=== PATIENT | female | born 1975 | race Caucasian/White ===

== ENCOUNTER → 2021-06-27 13:56 | Outpatient (CLI) | payer OTHER, SELFPAY ==
--- NOTE | ~2021-06-27 | MR_ITS ---
EXAMINATION: MR knee LT wo con DATE: 06/27/2021 14:36 INDICATION: Left knee pain. TECHNIQUE: Magnetic resonance imaging (MRI) of the left knee was performed without intravenous contra st. Sequences included axial PD-weighted FS FSE, coronal PD-weighted FSE and PD-weighted FS FSE, sagi ttal PD-weighted FSE, and sagittal T2-weighted FS FSE. COMPARISON: None. FINDINGS: Medial compartment: There is an undersurface horizontal tear of peripheral medial meniscus at the junction of the body an d posterior horn. Medial compartment cartilage is normal. Lateral compartment: Lateral meniscus is normal. Lateral compartment cartilage is normal. Patellofemoral compartment: There is shallow partial-thickness cartilage loss of patellar medial facet with small subchondral cys ts and mild subchondral edema-like marrow signal intensity. Trochlear cartilage is normal. Ligaments and tendons: The anterior and posterior cruciate ligaments are normal. Medial collateral ligament and lateral sergio ateral ligament complex are normal. Fluid: There is a small knee joint effusion. IMPRESSION: 1. Mild patellar chondrosis. 2. Tear of medial meniscus. 3. Small knee joint effusion. Reviewed, dictated and finalized at location A. 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
== END ==
PROVIDERS: PCP Internal Medicine
DX: M25.562 Pain in left knee (principal); M22.2X2 Patellofemoral disorders, left knee; S83.242A Other tear of medial meniscus, current injury, left knee, initial encounter; M25.462 Effusion, left knee
CPT/HCPCS: 73721

== ENCOUNTER → 2021-08-15 10:28 | Outpatient (CLI) | payer OTHER, SELFPAY ==
--- NOTE | ~2021-08-15 | MM_ITS ---
EXAMINATION: MM screening [facility] BI w juno HISTORY: Screening mammogram TECHNIQUE: Craniocaudal and mediolateral oblique 3-D tomosynthesis images were obtained and synthetic 2-D images were generated. CAD analysis was submitted and interpreted. COMPARISON: 01/30/2018 BREAST PARENCHYMAL COMPOSITION: The breasts are extremely dense, which lowers the sensitivity of mamm ography. FINDINGS: RIGHT BREAST: There is no evidence of suspicious mass, calcification, or architectural distortion to suggest malignancy. There has been no significant interval change. LEFT BREAST: An asymmetry is present in the posterior third of the slightly inner breast 6 cm from th e nipple on the craniocaudal view. IMPRESSION: 1. Left breast asymmetry on the craniocaudal view. 2. Additional mammographic views and possible breast ultrasound are recommended. BI-RADS Category 0: Incomplete: Needs additional imaging evaluation. Reviewed, dictated and finalized at location A. IMPRESSION: 1. Left breast asymmetry on the craniocaudal view. 2. Additional mammographic views and possible breast ultrasound are recommended . BI-RADS Category 0: Incomplete: Needs additional imaging evaluation.
== END ==
DX: Z12.31 Encounter for screening mammogram for malignant neoplasm of breast (principal); R92.8 Other abnormal and inconclusive findings on diagnostic imaging of breast
CPT/HCPCS: 77063; 77067

== ENCOUNTER → 2021-08-30 14:19 | Outpatient (CLI) | payer OTHER, SELFPAY ==
--- NOTE | ~2021-08-30 | MM_ITS ---
EXAMINATION: MM diagnostic [facility] LT w juno HISTORY: Left breast asymmetry on screening mammogram TECHNIQUE: Additional 3-D tomosynthesis images of the left breast were performed and synthetic 2-D im ages were generated. CAD analysis was submitted and interpreted. COMPARISON: 08/15/2021, 01/30/2018 FINDINGS: There is a return to baseline fibroglandular appearance with spot compression of the left b reast in the area questioned on screening mammogram. IMPRESSION: 1. No mammographic evidence of malignancy. 2. Recommend routine screening mammography in one year. BI-RADS Category 1: Negative Reviewed, dictated and finalized at location A.
== END ==
DX: R92.8 Other abnormal and inconclusive findings on diagnostic imaging of breast (principal)
CPT/HCPCS: 77061; 77065; G0279

== ENCOUNTER → 2022-04-03 08:54 | Outpatient (CLI) | payer OTHER, SELFPAY ==
--- NOTE | ~2022-04-03 | MMUS_ITS ---
EXAMINATION: MM diagnostic [facility] BI w juno, US breast BI complete HISTORY: Comparison to multiple prior studies sequentially, with oldest reviewed study dated 01/31/20 18. TECHNIQUE: Additional 3-D tomosynthesis images of the breasts were performed and synthetic 2-D images were generated. CAD analysis was submitted and interpreted. High resolution bilateral complete breas t ultrasound was performed. COMPARISON: Comparison to multiple prior studies sequentially, with oldest reviewed study dated 01/30. BREAST PARENCHYMAL COMPOSITION: The breasts are extremely dense, which lowers the sensitivity of mamm ography FINDINGS: MAMMOGRAPHIC FINDINGS: There are no suspicious masses, calcifications or architectural distortion in either breast to sugges t malignancy. ULTRASOUND: Complete bilateral US of all 4 quadrants of the breasts and retroareolar region was reviewed. In the right breast at 9:00, 2 cm from the nipple there is a 5 mm cyst. No suspicious masses are identified in either breast to suggest malignancy. IMPRESSION: 1. No evidence for malignancy in either breast. 2. Routine yearly screening mammogram and regular clinical breast examination are recommended. BI-RADS Category 2: Benign finding(s). Reviewed, dictated and finalized at location A. IMPRESSION: 1. No evidence for malignancy in either breast. 2. Routine yearly screening mammogram and regular clinical breast examination a re recommended. BI-RADS Category 2: Benign finding(s).
== END ==
PROVIDERS: PCP Nurse Practitioner Obstetrics & Gynecology; Visit Provider Nurse Practitioner Obstetrics & Gynecology
DX: N64.4 Mastodynia (principal)
CPT/HCPCS: 76641; 77062; 77066; G0279

== ENCOUNTER → 2023-01-22 09:17 | Outpatient (CLI) | payer OTHER, SELFPAY ==
--- NOTE | ~2023-01-22 | MMUS_ITS ---
EXAMINATION: MM diagnostic [facility] BI w juno, US breast BI complete HISTORY: Right axillary lump TECHNIQUE: ML, MLO and CC 3-D tomosynthesis images of both breasts were performed and synthetic 2-D i mages were generated. CAD analysis was submitted and interpreted. High resolution complete bilateral breast ultrasound examination including all 4 quadrants and subareolar areas was performed. Ultrasoun d imaging of the right axillary region was also performed. COMPARISON: 04/03/2022 bilateral diagnostic mammogram and complete bilateral breast ultrasound examin ation 08/30/2021 diagnostic left mammogram 08/15/2021 bilateral screening mammogram 01/30/2018 bilateral screening mammogram BREAST PARENCHYMAL COMPOSITION: The breasts are extremely dense, which lowers the sensitivity of mamm ography. FINDINGS: MAMMOGRAPHIC FINDINGS: No suspicious mass or architectural distortion, malignant calcification, skin thickening or retractio n or significant new or developing density is detected. ULTRASOUND: There is a normal appearing approximately 4 x 15 mm lymph node with thin hypoechoic cortex and promin ent fatty hilum. No suspicious right axillary mass lesion or shadowing is noted. No suspicious mass or shadowing, cyst or other significant sonographic finding is noted in either [place] ast. IMPRESSION: 1. Negative; no mammographic evidence of malignancy 2. Routine annual mammographic screening is recommended, with consideration for supplemental ultrasou nd considering the very dense fibroglandular stroma BI-RADS Category 1: Negative Reviewed, dictated and finalized at location A. IMPRESSION: 1. Negative; no mammographic evidence of malignancy 2. Routine annual mammographic screening is recommended, with consideration for supplemental ultrasound considering the very dense fibroglandular stroma BI-RADS Category 1: Negative
== END ==
PROVIDERS: PCP Nurse Practitioner Obstetrics & Gynecology
DX: N64.4 Mastodynia (principal)
CPT/HCPCS: 76641; 77062; 77066; G0279

== ENCOUNTER 2024-02-08 07:17 | Outpatient (CLI) | payer OTHER, SELFPAY ==
--- NOTE | ~2024-02-08 | XR_ITS ---
Lumbosacral Spine: AP, oblique, and lateral views Clinical History: Pain Findings: The normal lordotic curve is maintained. The vertebral bodies and posterior elements are i ntact. The intervertebral disc spaces are preserved. There is moderate facet arthropathy at L5-S1. T he sacroiliac joints are normally outlined. Impression: Moderate facet arthropathy at L5-S1. Reviewed, dictated and finalized at location . Impression: Moderate facet arthropathy at L5-S1.
== END 2024-02-08 07:18 | disposition home or self-care (01) ==
PROVIDERS: PCP Chiropractor; Visit Provider Chiropractor
DX: M47.897 Other spondylosis, lumbosacral region (principal)
CPT/HCPCS: 72110

== ENCOUNTER 2024-05-22 08:37 | Outpatient (CLI) | payer OTHER, SELFPAY ==
--- NOTE | ~2024-05-22 | MR_ITS ---
MRI of the left knee Clinical history: Patellofemoral arthritis Technique: Coronal proton density and proton density-weighted images, sagittal proton-density and T2 fat-sat images, and axial proton-density fat-saturated images were acquired. COMPARISON: 06/27/2021 Findings: Anterior and posterior cruciate ligaments are intact. Medial collateral ligament and the la teral collateral ligament complex are intact. Popliteus tendon is intact. Medial and lateral menisci are intact, without evidence of tear. There is focal moderate to high-grade chondromalacia the patellar apex with focal subchondral cystic change, overall similar to prior exam. Articular cartilage in the medial lateral compartments is well preserved. Extensor mechanism is intact. No joint effusion or Gutierrez's cyst. 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 Reviewed, dictated and finalized at [facility]. 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
== END 2024-05-22 08:38 | disposition home or self-care (01) ==
PROVIDERS: PCP Physician Assistant; Visit Provider Physician Assistant
DX: M22.42 Chondromalacia patellae, left knee (principal)
CPT/HCPCS: 73721

== ENCOUNTER 2024-11-05 10:42 | Outpatient (CLI) | payer OTHER, SELFPAY ==
--- NOTE | ~2024-11-05 | MM_ITS ---
EXAMINATION: MM screening [facility] BI w juno HISTORY: Screening TECHNIQUE: Craniocaudal and mediolateral oblique 3-D tomosynthesis images were obtained and synthetic 2-D images were generated. CAD analysis was submitted and interpreted. COMPARISON: 08/15/2021 and 01/30/2018 BREAST PARENCHYMAL COMPOSITION: The breasts are extremely dense, which lowers the sensitivity of mamm ography. FINDINGS: There is no evidence of suspicious mass, calcification, or architectural distortion to sug gest malignancy in either breast. There has been no suspicious interval change. IMPRESSION: 1. No mammographic evidence of malignancy. 2. Recommend routine screening mammography in one year. BI-RADS Category 1: Negative Reviewed, dictated and finalized at location B.
== END 2024-11-05 10:43 | disposition home or self-care (01) ==
LOC: MICIMG 10:43
PROVIDERS: PCP Nurse Practitioner; Visit Provider Nurse Practitioner
DX: Z12.31 Encounter for screening mammogram for malignant neoplasm of breast (principal)
CPT/HCPCS: 77063; 77067

== ENCOUNTER 2025-01-12 10:41 | Outpatient (CLI) | payer OTHER, SELFPAY ==
--- NOTE | 2025-01-12 | ECG_ITS ---
Test Date: 2025-01-12 11:04:45 Measurements Intervals [place] Rate: 60 P: 65 NM: 143 QRS: 87 QRSD: 94 T: 58 QT: 413 QTc: 413 Interpretive Statements SINUS RHYTHM NORMAL ECG No previous ECG available for comparison Electronically Signed On 01-12-2025 11:12:03 CDT by Mark Johnson D.O.
--- OUTSIDE RECORDS SUMMARY | 2025-01-12 10:49 | XMS_ITS | Clinical Summary ---
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,non-owned Affiliates and Associated Physician Practices is amultiple site organization consisting of ambulatory clinics and hospital sitesin [place], [place], [place] and [place]. This disclosure is being madepursuant to the Care Everywhere program and may not contain all information available regarding this patient. Last updated 18.[facility] Allergies No known active allergies Medications * Be aware that medications may not be up to date on this document. Alwaysverify current medications with the patient. No known medications Active Problems No known active problems Social History Tobacco Use Types Packs/Day Years Used Date Smoking Tobacco: Never Comments Unknown Sex and Gender Information Value Date Recorded Sex Assigned at Not on file Legal Sex Female 10:57 AM CDT Gender Identity Not on file Sexual Orientation Not on file Plan of Treatment Health Maintenance Due Date Last Done Comments COLOGUARD (AGES 45-75) - COL ON CA SCREENING 1977 COLON MONITORING 1977 COLONOSCOPY - COLON CA SCREENING 1977 CT COLONOGRAPHY - COLON CA SCREENING 1977 Colorectal Cancer Screening 1977 FIT - COLON CA SCREENING 1977 FLEX SIG - COLON CA SCREENING 1977 LIPID TESTING 1977 MAMMOGRAM 1977 HIV SCREENING 1992 HEPATITIS C SCREENING 11/20/1995 DTAP/TDAP/TD VACCINES (1 - Tdap) 1996 HEPATITIS B VACCINE (1 of 3 - 19+ 3-dose series) 1996 COVID-19 VACCINE (2023-2 5 season) 2024 09/21/2020, 08/27/2020 DEPRESSION SCREENING 06/04/2024 INFLUENZA VACCINE (#1) 2025 03/08/2023 PAP SMEAR 03/20/2025 03/20/2022, 03/20/2022 ZOSTER VACCINE (1 of 2) 11/25/2027 HIB VACCINE Aged Out No longer eligi ble based on patient's age to complete this topic HPV VACCINE Aged Out No longer eligi ble based on patient's age to complete this topic MENINGOCOCCAL (Group B) VACCINE SHARED DECISION-MAKING Aged Out No longer eligible based on patient's age to complete this topic MENINGOCOCCAL GROUPS A/C/Y/W VACCINE Aged Out No longer eligible b ased on patient's age to complete this topic PNEUMOCOCCAL VACCINE Aged Out No long er eligible based on patient's age to complete this topic Care Teams Topline Beading Machine Tender Relationship Specialty Start Date End Date Wilfredo Barajas MD [address] [id number] PCP - General Internal Medicine 02/02/16
--- OUTSIDE RECORDS SUMMARY | 2025-01-12 10:49 | XMS_ITS | Clinical Summary ---
Author Organization [facility] Address [address] [place] [address] Care Team Providers Care Physiology Teacher Name Role Phone Truman Sheppardsspatricia MULLIGAN Primary Care Provider [phone] Allergies Active Allergy Reactions Criticality Noted Date Comments Hydrocodone-Acetaminophen Nausea And Vomiting 0 06/06/2007 Mold Other (See comments) Low 06/01/2023 Medications omega-3 fatty acids-fish oil 300-1,000 mg capsule Take 2 capsules (2 g total) by mouth daily Active multivitamin capsule Take 1 capsule by mouth daily Active ferrous sulfate 325 mg (65 mg of elemental iron) tabletIndications :Iron Deficiency Anemia Take 1 tablet (65 mg of elemental iron total) by mouth 3 (three) times a day with meals Active levothyroxine (SYNTHROID) 100 mcg tablet Take 1 tablet (100 mcg total) by mouth daily 90 tablet 1 4 Active Additional Information Patient taking differently: 112 mcgoral Daily, Reported on 09/10/2024 progesterone (PROMETRIUM) 200 mg capsule ER 400 MG 4 Active olopatadine 0.6 % spray,non-aerosol Administer 2 sprays into each nostril 2 (two) times a day 4 Active sertraline (ZOLOFT) 100 mg tablet Take 1 tablet (100 mg total) by mouth daily 4 Active buPROPion XL (WELLBUTRIN XL) 150 mg 24 hr tablet Take 1 tablet (150 mg total) by mouth daily 5 Active estradioL (VIVELLE-DOT) 0.1 mg/[address] 1 patch on the skin 2 (two) times a week 5 Active estradioL (ESTRACE) 1 mg tablet Take 1 tablet (1 mg total) by mouth daily 5 Active prasterone, dhea, 50 mg capsule Take 25 mg by mouth 3 (three) times a day Active methylphenidate ER (CONCERTA) 27 mg CR tabletIndications :Attention-Defici t Hyperactivity Disorder Take 1 tablet (27 mg total) by mouth every morning 30 tablet 5 Active Additional Information Patient not taking.Reported on 09/10/2024 Active Problems Problem Noted Date Diagnosed Date Screening for colon cancer 05/07/2024 ARASH (obstructive sleep apnea) 12/13/2023 Encounter to establish care 06/01/2023 Assessment & Plan (06/01/2023 4:17 PM PATIENT SAFETY ATTENDANT): Reviewed past and current medical history, surgical history, social history, family history, current medications, and allergies. A ROS and PE were performed. Medications and labs were ordered and referrals were made. Discussed well woman exam/cervical cancer screening, colonoscopy screenings, and recommended immunizations. Patient will follow-up in 6 weeks for further evaluation and management or sooner if needed. Hypotension 06/01/2023 Assessment & Plan (07/20/2023 10:39 AM PATIENT SAFETY ATTENDANT): Believe patient's symptoms are related to HCG. Patient has stopped medication. Advised her to not continue taking it or restart taking it. Assessment & Plan (06/01/2023 4:19 PM PATIENT SAFETY ATTENDANT): Patient's blood pressure is slightly low with with mildly increased resting heart rate from baseline. Patient reports her resting heart rate has increased approximately 10-15 beats per minute. Labs pending. EKG normal in office today. Physical exam unremarkable. Tear of medial meniscus of left knee 07/20/2021 Overview (07/20/2021): Added automatically from request for surgery [id number] Chondromalacia of left patella 07/20/2021 Overview (07/20/2021): Added automatically from request for surgery [id number] Anxiety 07/13/2021 Depressive disorder 07/13/2021 Hypothyroidism 07/13/2021 Assessment & Plan (06/01/2023 4:18 PM PATIENT SAFETY ATTENDANT): Patient is currently on 112 mcg of levothyroxine. She has not been evaluated since starting that medication and has not had a recent TSH. She is currently taking HCG for PMDD symptoms. Suspect that the hCG is modulating her thyroid Narcolepsy 07/13/2021 Narcolepsy without cataplexy(347.00) 03/12/2012 Overview (06/01/2023): MSLT performed October 2004 with a mean latency of 3.4 minutes with 2 REM onset naps. The PSG the night prior showed total sleep time of 3.4 hours (reduced). She is well controlled on Adderall 5 mg taken as needed, averaging 10 tablets monthly. Last Assessment & Plan: I refilled her Adderall 5 mg #120 prescription, which typically lasts her for one year. She is considering trying to conceive. We discussed avoiding all stimulant medications during and trying to optimize behavioral interventions such as scheduled naps. She is planning on breast feeding once she has a baby. I discussed avoiding stimulant medications during breast feeding, but also if she needed to take the medication to pump and dump the milk in the 4 hour window after taking the immediate release Adderall to the baby is not exposed to it. Fatigue 07/15/2007 Assessment & Plan (06/01/2023 4:17 PM PATIENT SAFETY ATTENDANT): Labs pending Encounters Date Type Department Care Team Description 10/16/2024 Telephone [facility] [address] [place] [address] Shavonne Choudhary MA from Last 3 Months Immunizations Immunization Administration Dates Next Due Influenza, Unspecified 03/08/2023,03/08/2022(Def erred: Patient decision) Tdap 03/06/2014 Surgical History Surgery Date Site/Laterality Comments KNEE ARTHROSCOPY 06/04/2008 - 06/03/2009 Right ANTERIOR CRUCIATE LIGAMENT REPAIR 06/04/2001 - 2 Right KNEE DEBRIDEMENT 06/04/2003 - 06/03/2004 Right COLONOSCOPY 09/10/2024 Medical History Medical History Date Comments Narcolepsy Motion sickness Hypothyroidism LEONORA (generalized anxiety disorder) MDD (major depressive disorder) Family History Medical History Relation Name Comments No Known Problems Brother Alcohol abuse Father Sascha Bladder Cancer Father Sascha Depression Father Sascha Hyperlipidemia Father Sascha Hypertension Father Sascha Prediabetes Father Sascha Prostate cancer Father Sascha Lung cancer Maternal Grandfather Breast cancer Maternal Grandmother orbyn Diabetes Maternal Grandmother robyn Hyperlipidemia Maternal Grandmother robyn Hypertension Maternal Grandmother robyn Hyperlipidemia Mother Savana Hypertension Mother Savana Clotting disorder Mother's Brother Des Frontotemporal dementia Paternal Grandfather Uterine cancer Paternal Grandmother No Known Problems Son Relation Name Status Comments Brother Alive Father Sascha Alive Maternal Grandfather Maternal Grandmother robyn Alive Mother Savana Alive Mother's Brother Des Paternal Grandfather Alive Paternal Grandmother Alive Son Alive Social History Tobacco Use Types Packs/Day Years Used Date Smoking Tobacco: Never Smokeless Tobacco: Never Tobacco Cessation:Counseling Given: Not Answered AUDIT-C Answer Date Recorded Q1: How often do you have a drink containing alc ohol? 2-3 times a week 09/10/2024 Average Number of Drinks Not on file 025 Q3: How often do you have si x or more drinks on one occasion? Never 09/10/2024 PHQ-2 Answer Date Recorded PHQ-2 Total Score (If total score is 3 or more points, staff should administer the PHQ-9) 0 07/20/2023 Personal Safety Answer Date Recorded Have you ever been in or are you currently in a harmful physical or emotional relationship or is someone making you feel afraid or unsafe? Denies 09/10/2024 Comments No Sex and Gender Information Value Date Recorded Sex Assigned at Not on file Legal Sex Female 4:45 AM PATIENT SAFETY ATTENDANT Gender Identity Not on file Sexual Orientation Not on file Obstetrics History Last Filed Vital Signs Vital Sign Reading Time Taken Comments Blood Pressure 135/87 09/10/2024 2:20 PM CDT Pulse 73 09/10/2024 2:20 PM CDT Temperature 36.6 C (97.9 F) 09/10/2024 2:20 PM CDT Respiratory Rate 16 09/10/2024 2:20 PM CDT Oxygen Saturation 100% 09/10/2024 2:20 PM CDT Inhaled Oxygen Concentration - - Weight 59 kg (130 lb) 09/10/2024 9:33 AM CDT Height 157.5 cm (5' 2) 09/10/2024 9:33 AM CDT Body Mass Index 23.78 09/10/2024 9:33 AM CDT Plan of Treatment Health Maintenance Due Date Last Done Comments Breast Cancer Screening-Mammogram 1975 Cervical Cancer Screening 1975 Hepatitis C Screening 1975 Hepatitis B Screening 11/25/1995 Regular Well Visit/Exam 18-64 11/25/1995 Covid-19 Vaccine (2023-2 5 season) 2024 09/21/2020, 08/27/2020 DTaP/Tdap/Td Vaccine (2 - Td or Tdap) 03/06/2024 03/06/2014 Depression Screening 07/20/2024 07/20/2023, 06/01/2023 Influenza Vaccine (#1) 2025 03/08/2023 Colon Cancer Screening-Colonoscopy 09/10/2034 09/10/2024 Pneumococcal vaccine <65 Aged Out No longer eligible based on patient's age to complete this topic Procedures Procedure Name Priority Date/Time Associated Diagnosis Comments COLONOSCOPY 09/10/2024 9:31 AM CDT from Last 3 Months or Most Recently Relevant to Health Maintenance Results * Colonoscopy (09/10/2024 9:31 AM CDT) Anatomical Region Laterality Modality Other Narrative Procedure Note Des Palencia, - 09/10/2024 9:31 AM CDT [facility] Patient Name: Puja Chaparro Procedure Date: 09/10/2024 9:31 AM Date of : 1975 Admit Type: Outpatient Age: 48 Gender: Female Attending MD: Des Palencia D.O. Room: [facility] END[facility]COPY ROOM 3 Note Status: Finalized Patient Profile: Refer to note in patient chart for documentation of history and physical. Procedure: Colonoscopy Indications: Screening for colorectal malignant neoplasm, Thisis the patient's first colonoscopy Referring MD: Nkechi Sheppard NP Providers: Des Palencia D.O. Impression: - The examined portion of the ileum was normal. - One 3 mm polyp in the distal sigmoid colon,removed with a jumbo cold forceps. Resected andretrieved. Recommendation: - Discharge patient to home. - Resume previous diet. - Continue present medications. - Await pathology results. - Repeat colonoscopy (date not yet determined) for surveillance based on pathology results. - Return to primary care physician PRN. Medicines: Monitored Anesthesia Care Complications: No immediate complications. Estimated Blood Loss: Estimated blood loss was minimal. Procedure: Pre-Anesthesia Assessment: - As per anesthesia. The benefits, risks and alternatives of theprocedure and sedation were discussed and informed consentwas obtained. All questions were answered. Please referto the signed informed consent document in the medical record. The bowel preparation used was Miralax via split dose instruction. The bowel preparation usedwas bisacodyl tablets via split dose instruction. The scope was passed under direct vision. The Pediatric Colonoscope PCF-H190L [id number] was introducedthrough the anus and advanced to the 5 cm into the ileum.The colonoscopy was performed without difficulty. The patient tolerated the procedure well. The qualityof the bowel preparation was good. The terminal ileum, ileocecal valve, appendiceal orifice, and rectumwere photographed. Findings: The perianal and digital rectal examinations were normal. The terminal ileum appeared normal. A 3 mm polyp was found in the distal sigmoid colon. The polyp was removed with a jumbo cold forceps. Resection and retrieval werecomplete. No additional abnormalities were found on retroflexion. Electronically signed by Des Palencia M.D. Des Palencia D.O. 09/10/2024 1:52:36 PM Number of Addenda: 0 Note Initiated On: 09/10/2024 9:31 AM Procedure Code(s): --- Professional --- 81274, Colonoscopy, flexible; with biopsy, single or multiple --- Technical --- 69079, Colonoscopy, flexible; with biopsy, single or multiple Diagnosis Code(s): --- Professional --- Z12.11, Encounter for screening for malignant neoplasm of colon D12.5, Benign neoplasm of sigmoid colon --- Technical --- Z12.11, Encounter for screening for malignant neoplasm of colon D12.5, Benign neoplasm of sigmoid colon CPT copyright 2020 [employer]. All rights reserved. The codes documented in this report are preliminary and upon rehabilitation program coordinator reviewmay be revised to meet current compliance requirements. Recognized by the [employer] for promoting quality in endoscopy Des Palencia DO ENDOSCOPY PROCEDURES Final Res ult from Last 3 Months or Most Recently Relevant to Health Maintenance Insurance [employer] [facility] [place] [address] [facility] [place] [address] [facility] Advance Directives For more information, please contact: [phone] * Full Code (Latest Code Status on File) Date Activated Date Inactivated Comments 09/10/2024 9:23 AM 09/10/2024 7:11 PM * Full Code Date Activated Date Inactivated Comments 09/10/2024 9:23 AM 09/10/2024 9:23 AM Care Teams Physiology Teacher Relationship Specialty Start Date End Date Nkechi Sheppard NP PCP - General Internal Medicine 06/01/23
== END 2025-01-12 10:42 | disposition home or self-care (01) ==
PROVIDERS: PCP Nurse Practitioner; Visit Provider Podiatrist Foot & Ankle Surgery
DX: R03.0 Elevated blood-pressure reading, without diagnosis of hypertension (principal)
CPT/HCPCS: 93005